=== PATIENT | female | born 1985 | race Caucasian/White ===

== ENCOUNTER 2016-11-13 10:30 | Emergency (ER) | payer OTHER ==
[~2016-11-13] VITALS: Ht 180.3 cm; Wt 118.5 kg
[~2016-11-13 10:30] MED LIST: BACTRIM,SEPT1 TABLET PO; BIOTIN1000 MICRO PO; Biotin PO; CARAFATE; CIPRO500 MG PO; DILAUDID; ENDOCET 5-3251 EACH PO; HYDROCODON-ACE1 EAC7 PO; HYDROXYZINE HCL25 MG PO; Levothroid,Synthroid PO; MULTIVITAMIN1 EAC2 PO; Motrin PO; NATALCARE RX1 TABLE1 PO; NIX 5% CREAM60 GM TP; PHENERGAN; PRILOSEC OTC20 M1 PO; PRILOSEC40 MG PO; PROTONIX; ULTRAM50 MG PO; VITAMIN B12-FO1 EACH PO; Vicodin,Norco 5/325 PO; ZANTAC150 MG PO; ZOFRAN4 MG PO
[2016-11-13] MEDS ORDERED: NAPROSYN500 MG PO (12:16)
[2016-11-13] MEDS ORDERED: MEDROL DOSEPAK4 MG PO (12:16)
[2016-11-13 12:23] VITALS: BP 97/61
== END 2016-11-13 12:26 | disposition home or self-care (01) ==
LOC: EME 10:30
DX: M54.5 Low back pain (principal); M48.06 Spinal stenosis, lumbar region; Z87.891 Personal history of nicotine dependence
CPT/HCPCS: 72131; 84702; 99281; 99283; J1885

== ENCOUNTER 2017-02-13 10:33 | Emergency (ER) | payer OTHER ==
[~2017-02-13] VITALS: Ht 180.3 cm; Wt 126.2 kg
[~2017-02-13 10:33] MED LIST changes: +MEDROL DOSEPAK4 MG PO; +NAPROSYN500 MG PO
[2017-02-13 11:29] LABS: HEMATOCRIT 34.1 % (36.0-46.0); MCH 28.6 PG (29.0-34.0); MCHC 32.3 G/DL (30.0-36.0); MCV 88.8 FL (83-99); MEAN PLAT.VOLUME 10.4 uM^3 (9.5-12.4); PLATELET COUNT 212 K/uL (156-360); RBC DIS.WIDTH-CV 12.2 % (11.8-14.6); RBC DIS.WIDTH-SD 39.4 % (39-53); RED BLOOD COUNT 3.84 M/uL (3.80-5.20); WHITE BLOOD COUNT 8.3 K/uL (4.1-10.2)
[2017-02-13 12:10] LABS: QUANTITATIVE HCG 65944.4 MIU/ML
[2017-02-13 13:31] LABS: CHLORIDE 107 mEq/L (99-109); POTASSIUM 3.8 mEq/L (3.7-5.4); SODIUM 137 mEq/L (136-147)
[2017-02-13 13:33] LABS: GLUCOSE 86 mg/dL (70-99)
[2017-02-13 13:34] LABS: ANION GAP 10 MEQ/L (2-14)
[2017-02-13 13:37] LABS: GFR ESTIMATE (CALCULATED) > 59 mL/min/
[2017-02-13 13:38] LABS: UREA NITROGEN (BUN) 12 mg/dL (9-23)
[2017-02-13 14:30] LABS: ADD MIUA? YES; BILIRUBIN NEGATIVE; BLOOD LARGE; COLOR YELLOW ((YELLOW)); GLUCOSE (STRIP) NEGATIVE; KETONES 5; LEUKOCYTES NEGATIVE; NITRITE NEGATIVE; PROTEIN (STRIP) NEGATIVE; SPECIFIC GRAVITY 1.025 (1.000-1.030); UROBILINOGEN 0.2 MG/DL (0.2-1.0)
[2017-02-13 15:01] LABS: EPITHELIAL CELLS 2+ /HPF; WHITE BLOOD CELLS 0-5 /HPF (0-5)
[2017-02-13 15:02] LABS: BACTERIA 1+ /HPF; CASTS NONE SEEN /LPF; CRYSTALS NONE SEEN; MUCUS NONE SEEN /LPF; UCUL ADDED? NO
[2017-02-13 15:18] VITALS: BP 105/57
== END 2017-02-13 15:19 | disposition home or self-care (01) ==
LOC: EME 10:33
DX: O20.0 Threatened abortion (principal); O99.611 Diseases of the digestive system complicating pregnancy, first trimester; K21.9 Gastro-esophageal reflux disease without esophagitis; K44.9 Diaphragmatic hernia without obstruction or gangrene; O99.841 Bariatric surgery status complicating pregnancy, first trimester; O99.331 Smoking (tobacco) complicating pregnancy, first trimester; F17.200 Nicotine dependence, unspecified, uncomplicated; Z3A.13 13 weeks gestation of pregnancy
CPT/HCPCS: 76801; 80048; 80048 91; 81003; 84702; 85027; 99281; 99284

== ENCOUNTER 2017-06-08 16:58 | Outpatient (CLI) | payer OTHER ==
[2017-06-08 17:17] VITALS: BP 108/55
[2017-06-08 18:09] VITALS: BP 98/56
[2017-06-08 18:52] LABS: APPEARANCE SL.HAZY ((CLEAR)); BILIRUBIN NEGATIVE; BLOOD NEGATIVE; COLOR YELLOW ((YELLOW)); GLUCOSE (STRIP) NEGATIVE; KETONES NEGATIVE; LEUKOCYTES NEGATIVE; NITRITE NEGATIVE; PROTEIN (STRIP) 30; SPECIFIC GRAVITY 1.033 (1.000-1.030); UROBILINOGEN 0.2 MG/DL (0.2-1.0)
[2017-06-08 18:57] LABS: BACTERIA NONE SEEN /HPF; EPITHELIAL CELLS 1+ /HPF; MUCUS TRACE /LPF; RED BLOOD CELLS 0-5 /HPF (0-5); UCUL ADDED? NO; WHITE BLOOD CELLS 0-5 /HPF (0-5)
[2017-06-08 19:44] VITALS: BP 93/55
[2017-06-08 22:43] LABS: CANDIDA DNA PROBE NEGATIVE; GARDNERELLA DNA PROBE NEGATIVE; TRICHOMONAS DNA PROBE NEGATIVE
== END 2017-06-08 20:30 | disposition home or self-care (01) ==
LOC: LDRP-OP 16:58 → 2WEST 17:00
PROVIDERS: Advanced Practice Midwife
DX: O60.03 Preterm labor without delivery, third trimester (principal); Z3A.29 29 weeks gestation of pregnancy; O12.13 Gestational proteinuria, third trimester; O99.333 Smoking (tobacco) complicating pregnancy, third trimester; F17.200 Nicotine dependence, unspecified, uncomplicated
CPT/HCPCS: 59025; 81003; 87480; 87510; 87660; G0378

== ENCOUNTER 2017-08-07 14:57 | Inpatient (IN) | payer OTHER ==
[2017-08-07 15:14] VITALS: BP 109/68
[2017-08-07 16:14] LABS: BASOPHIL (%) 0.2 % (0-1); EOSINOPHIL (%) 1.1 % (0-5); EOSINOPHIL COUNT 0.2 K/uL (0-0.3); HEMATOCRIT 31.8 % (36.0-46.0); HEMOGLOBIN 10.1 G/DL (11.9-15.5); IMMATURE GRANULOCYTE (%) 0.7 % (0.0-0.7); LYMPHOCYTE (%) 14.2 % (15-42); MCH 25.6 PG (29.0-34.0); MCHC 31.8 G/DL (30.0-36.0); MCV 80.5 FL (83-99); MONOCYTE (%) 6.9 % (3-12); NEUTROPHIL (%) 76.9 % (45-76); NEUTROPHIL COUNT 10.9 K/uL (1.8-6.4); PLATELET COUNT 294 K/uL (156-360); RBC DIS.WIDTH-CV 13.9 % (11.8-14.6); RBC DIS.WIDTH-SD 40.5 % (39-53); RED BLOOD COUNT 3.95 M/uL (3.80-5.20); WHITE BLOOD COUNT 14.1 K/uL (4.1-10.2)
[2017-08-07] MEDS ORDERED: IBUPROFEN800 MG PO (18:32)
[2017-08-07] MEDS ORDERED: ENDOCET 5-3251 EACH PO (18:32)
[2017-08-07 19:25] LABS: AMPHETAMINE NEGATIVE (500 ng/mL); BARBITURATES NEGATIVE (200 ng/mL); BENZODIAZEPINES NEGATIVE (150 ng/mL); BUPRENORPHINE NEGATIVE (10 ng/mL); COCAINE NEGATIVE (150 ng/mL); METHADONE NEGATIVE (200 ng/mL); METHAMPHETAMINE NEGATIVE (500 ng/mL); OPIATES (MORPHINE) NEGATIVE (100 ng/mL); OXYCODONE NEGATIVE (100 ng/mL); PHENCYCLIDINE NEGATIVE (25 ng/mL); PROPOXYPHENE NEGATIVE (300 ng/mL); THC CANNABINOIDS NEGATIVE (50 ng/mL); TRICYCLIC ANTIDEPRESSANTS NEGATIVE (300 ng/mL)
[2017-08-07 19:54] VITALS: BP 102/56
[2017-08-08 06:21] LABS: BASOPHIL (%) 0.2 % (0-1); EOSINOPHIL COUNT 0.1 K/uL (0-0.3); HEMATOCRIT 24.6 % (36.0-46.0); IMMATURE GRANULOCYTE (%) 0.5 % (0.0-0.7); LYMPHOCYTE (%) 15.5 % (15-42); LYMPHOCYTE COUNT 1.9 K/uL (1.0-2.8); MCHC 31.3 G/DL (30.0-36.0); MCV 79.9 FL (83-99); NEUTROPHIL (%) 74.8 % (45-76); PLATELET COUNT 229 K/uL (156-360); RBC DIS.WIDTH-CV 14.1 % (11.8-14.6); WHITE BLOOD COUNT 12.1 K/uL (4.1-10.2)
[2017-08-08 06:27] LABS: HEMOGLOBIN 7.7 G/DL (11.9-15.5); RED BLOOD COUNT 3.08 M/uL (3.80-5.20)
[2017-08-08 09:22] VITALS: BP 116/54
[2017-08-08 15:33] VITALS: BP 104/55
[2017-08-08 19:00] VITALS: BP 96/51
[2017-08-08 23:00] VITALS: BP 106/55
[2017-08-09 02:45] VITALS: BP 91/48
[2017-08-09 06:45] VITALS: BP 89/50
[2017-08-09] MEDS ORDERED: FEOSOL325 MG PO (09:04)
== END 2017-08-09 15:40 | disposition home or self-care (01) | DRG 765 ==
LOC: LDRP-OP 14:57 → 2WEST 14:59 → LDRP-OP 08-30 20:47
PROVIDERS: Obstetrics & Gynecology
PROC: 10D00Z1 Extraction of Products of Conception, Low, Open Approach (ICD-10-PCS; principal; 2017-08-07)
DX: O34.211 Maternal care for low transverse scar from previous cesarean delivery (principal); O77.0 Labor and delivery complicated by meconium in amniotic fluid; O99.02 Anemia complicating childbirth; D50.9 Iron deficiency anemia, unspecified; O26.03 Excessive weight gain in pregnancy, third trimester; O99.284 Endocrine, nutritional and metabolic diseases complicating childbirth; E03.9 Hypothyroidism, unspecified; E28.2 Polycystic ovarian syndrome; O99.62 Diseases of the digestive system complicating childbirth; K21.9 Gastro-esophageal reflux disease without esophagitis; O98.52 Other viral diseases complicating childbirth; B00.9 Herpesviral infection, unspecified; O99.354 Diseases of the nervous system complicating childbirth; G89.29 Other chronic pain; O99.89 Other specified diseases and conditions complicating pregnancy, childbirth and the puerperium; M48.00 Spinal stenosis, site unspecified; M47.819 Spondylosis without myelopathy or radiculopathy, site unspecified; O99.334 Smoking (tobacco) complicating childbirth; F17.210 Nicotine dependence, cigarettes, uncomplicated; O99.844 Bariatric surgery status complicating childbirth; O99.214 Obesity complicating childbirth; E66.9 Obesity, unspecified; Z68.37 Body mass index [BMI] 37.0-37.9, adult; Z3A.38 38 weeks gestation of pregnancy; Z37.0 Single live birth
CPT/HCPCS: 84443; 85025; 86850; 86900; 86901; J0690; J1885; J2274; J3010; J7120